=== PATIENT | female | born 1990 | race Hispanic/Latino ===

== ENCOUNTER 2023-01-26 18:02 | Day surgery (SDC) | payer SELFPAY ==
[2023-01-26 18:40] VITALS: BMI 38.9
[2023-01-26] MEDS ORDERED: hydrALAZINE 20 MG/ML VIAL SLOW IVP PRN ×2 (19:45)
== END 2023-01-26 20:59 | disposition home or self-care (01) ==
LOC: CSHLD/OP 18:02
PROVIDERS: ATTEND Family Medicine
DX: O21.2 Late vomiting of pregnancy (principal); Z3A.37 37 weeks gestation of pregnancy

== ENCOUNTER 2023-01-30 10:28 | Inpatient (IN) | payer MEDICAID, SELFPAY ==
[2023-01-30] MEDS ORDERED: Lactated Ringer's 1,000 ML IV SCH (11:00)
[2023-01-30] MEDS ORDERED: Diphenoxylate HCl/Atropine Tablet PO PRN (11:00)
[2023-01-30] MEDS ORDERED: Promethazine HCl 25 MG/ML VIAL IM PRN (11:00)
[2023-01-30] MEDS ORDERED: hydrALAZINE 20 MG/ML VIAL SLOW IVP PRN ×2 (11:00→13:00)
[2023-01-30] MEDS ORDERED: Acetaminophen 500 MG TAB PO PRN (11:00)
[2023-01-30] MEDS ORDERED: Ondansetron PF 4 MG/2 ML Vial IVP PRN ×2 (11:00→13:00)
[2023-01-30] MEDS ORDERED: Ibuprofen 800 MG TAB PO PRN (11:00)
[2023-01-30] MEDS ORDERED: Misoprostol 200 MCG TAB PR PRN (11:00)
[2023-01-30] MEDS ORDERED: Oxytocin 30 units/NS 500 ML 500 ML IV SCH (11:00)
[2023-01-30] MEDS ORDERED: Lidocaine 1% (PF) 30 ML VIAL SC PRN (11:00)
[2023-01-30] MEDS ORDERED: HYDROcodone/Acetaminophen 5/325 mg Tablet PO PRN ×2 (11:00→13:00)
[2023-01-30] MEDS ORDERED: Carboprost 250 MCG/ML AMP IM PRN (11:00)
[2023-01-30] MEDS ORDERED: Methylergonovine 0.2 MG/ML VIAL IM PRN (11:00)
[2023-01-30] MEDS ORDERED: fentaNYL 50 mcg/mL 1 mL Vial SLOW IVP PRN (11:00)
[2023-01-30] MEDS ORDERED: Tranexamic Acid 1,000 MG/10 ML VIAL IVP PRN (11:00)
[2023-01-30] MEDS ORDERED: fentaNYL/Ropivacaine Epidural 100 ML ONE (11:12)
[2023-01-30 11:15] VITALS: BMI 38.9
[2023-01-30 11:16] LABS: Hematocrit 36.4 % (34.9-44.5); Mean Corpuscular Hemoglobin 26.3 pg (27.0-33.0); Mean Corpuscular Volume 79.6 fl (81.6-98.3); Mean Platelet Volume 12.4 fl (7.4-10.4); Platelet Count 206 10x3/uL (150-450); RBC Distribution Width 13.7 % (11.5-14.5); Red Blood Cell (RBC) Count 4.57 10x6/uL (3.90-5.03)
[2023-01-30 11:47] LABS: Syphilis Antibody Nonreactive (Nonreactive); Syphilis Antibody Index 0.04 S/CO (<1.00 Non-Reactive)
[2023-01-30 11:48] LABS: HBSAg Index 0.14 S/CO (0-0.99); Hep B Surf Ag - L&D Non-Reactive S/CO (NonReactive)
[2023-01-30 11:59] LABS: RapidComm Collect By CBN
[2023-01-30 12:00] LABS: RapidComm Collect By CBN; pH (Cord, venous) 7.355 (7.250-7.350)
[2023-01-30] MEDS ORDERED: Boostrix 0.5 ML (Tdap) VIAL (>/=7 yrs of age) IM ONE (13:00)
[2023-01-30] MEDS ORDERED: Lanolin Ointment 7 GM TUBE TOP PRN (13:00)
[2023-01-30] MEDS ORDERED: Benzocaine-Menthol 82.5 ML CAN TOP PRN (13:00)
[2023-01-30] MEDS ORDERED: Milk Of Magnesia 30 ML UDCUP PO PRN (13:00)
[2023-01-30] MEDS ORDERED: diphenhydrAMINE 25 MG CAP PO PRN (13:00)
[2023-01-30] MEDS ORDERED: Bisacodyl 10 MG SUPP PR PRN (13:00)
[2023-01-30] MEDS: Ferrous Sulfate 325 MG TAB PO SCH (14:46)
[2023-01-30] MEDS: Docusate 100 MG CAP PO SCH (21:54)
[2023-01-30] MEDS: Ibuprofen 800 MG TAB PO SCH (21:54)
[2023-01-31] MEDS: Ibuprofen 800 MG TAB PO SCH ×2 (06:06→13:38)
[2023-01-31] MEDS: Ferrous Sulfate 325 MG TAB PO SCH (07:44)
[2023-01-31] MEDS ORDERED: Prenatal Vitamin 1 TAB PO SCH (09:00)
[2023-01-31] MEDS: Docusate 100 MG CAP PO SCH (09:42)
[2023-01-31 11:25] VITALS: BP 108/59; TEMP 97.7
== END 2023-01-31 15:55 | disposition home or self-care (01) | DRG 807 ==
LOC: CSHLD/OP 10:28 → CSHLD 11:00 → CSHPP 14:27
PROVIDERS: ADMIT Family Medicine; ATTEND Family Medicine
PROC: 10E0XZZ Delivery of Products of Conception, External Approach (ICD-10-PCS; principal; 2023-01-30)
DX: O80 Encounter for full-term uncomplicated delivery (principal); Z37.0 Single live birth; Z3A.39 39 weeks gestation of pregnancy
CPT/HCPCS: 82805; 85027; 86780; 86850; 86900; 86901; 87340; 99285

== ENCOUNTER 2024-12-02 10:22 | Inpatient (IN) | payer MEDICAID, OTHER, SELFPAY ==
[2024-12-02] MEDS ORDERED: Ibuprofen 800 MG TAB PO PRN (10:36)
[2024-12-02] MEDS ORDERED: Tranexamic Acid 1,000 MG/10 ML VIAL IVP PRN (10:36)
[2024-12-02] MEDS ORDERED: hydrALAZINE 20 MG/ML VIAL SLOW IVP PRN ×2 (10:36→16:43)
[2024-12-02] MEDS ORDERED: Acetaminophen 500 MG TAB PO PRN (10:36)
[2024-12-02] MEDS ORDERED: HYDROcodone/Acetaminophen 5/325 mg Tablet PO PRN ×3 (10:36→16:43)
[2024-12-02] MEDS ORDERED: Diphenoxylate HCl/Atropine Tablet PO PRN (10:36)
[2024-12-02] MEDS ORDERED: Ondansetron PF 4 MG/2 ML Vial IVP PRN ×2 (10:36→16:43)
[2024-12-02] MEDS ORDERED: Lidocaine 1% (PF) 30 ML VIAL SC PRN (10:36)
[2024-12-02] MEDS ORDERED: Carboprost 250 MCG/ML AMP IM PRN (10:36)
[2024-12-02] MEDS ORDERED: Methylergonovine 0.2 MG/ML VIAL IM PRN (10:36)
[2024-12-02] MEDS ORDERED: Oxytocin 30 units/NS 500 ML 500 ML IV SCH ×2 (10:45)
[2024-12-02 11:21] LABS: Hematocrit 35.4 % (34.9-44.5); Hemoglobin 11.1 g/dL (12.0-15.5); Mean Corpuscular Hemoglobin 25.2 pg (27.0-33.0); Mean Corpuscular Volume 80.5 fL (81.6-98.3); Platelet Count 203 10x3/uL (150-450); Red Blood Cell (RBC) Count 4.40 10x6/uL (3.90-5.03); White Blood Cell (WBC) Count 13.75 10x3/uL (3.5-10.5)
[2024-12-02 11:48] LABS: Hep B Surf Ag - L&D Non-Reactive S/CO (NonReactive)
[2024-12-02 11:50] LABS: Syphilis Antibody Index 0.07 S/CO (<1.00 Non-Reactive)
[2024-12-02 12:00] VITALS: BMI 38.4
[2024-12-02] MEDS ORDERED: diphenhydrAMINE 25 MG CAP PO PRN (16:43)
[2024-12-02] MEDS ORDERED: Boostrix 0.5 ML (Tdap) VIAL (>/=7 yrs of age) IM ONE (16:43)
[2024-12-02] MEDS ORDERED: Milk Of Magnesia 30 ML UDCUP PO PRN (16:43)
[2024-12-02] MEDS ORDERED: Lanolin Ointment 7 GM TUBE TOP PRN (16:43)
[2024-12-02] MEDS ORDERED: Bisacodyl 10 MG SUPP PR PRN (16:43)
[2024-12-02] MEDS: Ferrous Sulfate 325 MG TAB PO SCH (18:34)
[2024-12-02] MEDS: Ibuprofen 800 MG TAB PO SCH (21:07)
[2024-12-03 12:11] VITALS: BP 112/59; TEMP 98
== END 2024-12-03 17:00 | disposition home or self-care (01) | DRG 807 ==
LOC: CSHLD 10:22 → CSHPP 17:01
PROVIDERS: ADMIT Family Medicine; ATTEND Family Medicine
PROC: 10E0XZZ Delivery of Products of Conception, External Approach (ICD-10-PCS; principal; 2024-12-02)
PROC: 10907ZC Drainage of Amniotic Fluid, Therapeutic from Products of Conception, Via Natural or Artificial Opening (ICD-10-PCS; 2024-12-02)
DX: O69.81X0 Labor and delivery complicated by cord around neck, without compression, not applicable or unspecified (principal); Z37.0 Single live birth; Z3A.38 38 weeks gestation of pregnancy
CPT/HCPCS: 85027; 86780; 86850; 86900; 86901; 87340